=== PATIENT | female | born 1985 | race Caucasian/White ===

== ENCOUNTER 2020-07-28 18:42 | Emergency (ER) | payer OTHER, MEDICAID ==
[~2020-07-28] VITALS: Ht 154.9 cm; Wt 104.3 kg
[~2020-07-28 18:42] MED LIST: ALBUTEROL INH; ALBUTEROL NEB IH; AZITHROMYCIN 2250 MG PO; BIRTH CONTROL; COLACE100 MG PO; IBUPROFEN 800800 M1 PO; MACROBID 100 M100 M1 PO; NORCO 5-325 TA1 EACH PO; PENICILLIN VK500 MG PO; PERCOCET 5-3251 EACH; PRENATABS OBN1 EACH PO; PRENATAL; PROVENTIL IH; XANAX 0.5 MG0.5 M1 PO; ZOFRAN4 MG PO
[2020-07-28] MEDS ORDERED: BACTRIM DS TAB1 EACH PO (19:08)
[2020-07-28] MEDS ORDERED: CEPHALEXIN500 MG PO (19:08)
[2020-07-28 19:20] VITALS: BP 126/70
== END 2020-07-28 19:20 | disposition home or self-care (01) ==
LOC: M.ERS 18:42
DX: S40.861A Insect bite (nonvenomous) of right upper arm, initial encounter (principal); L08.9 Local infection of the skin and subcutaneous tissue, unspecified; J45.909 Unspecified asthma, uncomplicated; F17.210 Nicotine dependence, cigarettes, uncomplicated; Z91.040 Latex allergy status; Z88.6 Allergy status to analgesic agent; Z90.49 Acquired absence of other specified parts of digestive tract; W57.XXXA Bitten or stung by nonvenomous insect and other nonvenomous arthropods, initial encounter; Y93.89 Activity, other specified; Y92.89 Other specified places as the place of occurrence of the external cause; Y99.8 Other external cause status

== ENCOUNTER 2020-10-28 21:08 | Emergency (ER) | payer OTHER, MEDICAID ==
[~2020-10-28] VITALS: Ht 154.9 cm; Wt 99.8 kg
[~2020-10-28 21:08] MED LIST changes: +BACTRIM DS TAB1 EACH PO; +CEPHALEXIN500 MG PO
[2020-10-29] MEDS ORDERED: HYDROCODONE-ACE15 ML PO (01:56)
[2020-10-29 02:06] VITALS: BP 145/87
== END 2020-10-29 02:07 | disposition home or self-care (01) ==
LOC: M.ERS 21:08
DX: J02.9 Acute pharyngitis, unspecified (principal); Z20.822 Contact with and (suspected) exposure to COVID-19; F41.9 Anxiety disorder, unspecified; J45.909 Unspecified asthma, uncomplicated; Z90.49 Acquired absence of other specified parts of digestive tract; Z91.040 Latex allergy status; Z88.6 Allergy status to analgesic agent